=== PATIENT | male | born 1955 | race Caucasian/White ===

== ENCOUNTER 2021-09-20 21:12 | Emergency (ER) | payer OTHER ==
[2021-09-20 22:04] VITALS: TEMP 98.2; BMI 24.0
[2021-09-20 22:22] LABS: BASO % 0.1 % (0-2.0); EOS % 2.8 % (0-4.5); HEMATOCRIT 42.8 % (35.4-49); HEMOGLOBIN 14.1 GM/dL (11.7-16.9); LYMPH % 15.7 % (8-40); MCH 28.5 pg (25.7-33.7); MEAN CELL VOLUME 86.2 fl (80-96); MEAN PLT VOLUME 8.8 fl (7.5-11.1); MONO % 6.1 % (3.8-10.2); NEUT % 75.3 % (42.8-82.8); PLATELET COUNT 199 10^3/uL (134-434); RBC 4.97 M/mm3 (4.00-5.60); RDW 13.5 % (11.9-15.9); WHITE BLOOD COUNT 7.2 K/mm3 (4.0-10.0)
[2021-09-20 22:32] LABS: INR 1.03 (0.83-1.09); PROTHROMBIN TIME (PATIENT) 12.1 SEC (9.7-13.0)
[2021-09-20 22:35] LABS: ACTIVATED PTT 32.4 SECONDS (25.2-36.5)
[2021-09-20 22:40] LABS: CHLORIDE 98 mmol/L (98-107); SODIUM 139 mmol/L (136-145)
[2021-09-20 22:42] LABS: ALBUMIN 3.5 g/dl (3.4-5.0); ANION GAP 5 MMOL/L (8-16); CO2 36 mmol/L (21-32); GLUCOSE,RANDOM 94 mg/dL (74-106); MAGNESIUM 2.4 mg/dL (1.8-2.4)
[2021-09-20 22:43] LABS: BLOOD UREA NITROGEN 27.6 mg/dL (7-18)
[2021-09-20 22:45] LABS: CREATININE 1.1 mg/dL (0.55-1.3); SGOT/AST 20 U/L (15-37)
[2021-09-20 22:46] LABS: SGPT/ALT 15 U/L (13-61)
[2021-09-20 22:47] LABS: BILIRUBIN,TOTAL 0.3 mg/dL (0.2-1); TOT PROT 7.5 g/dl (6.4-8.2)
[2021-09-20 22:48] LABS: ALK PHOS 135 U/L (45-117)
[2021-09-21 01:39] LABS: URINE APPEARANCE CLEAR; URINE BILIRUBIN NEGATIVE (NEGATIVE); URINE COLOR YELLOW; URINE GLUCOSE (UA) NEGATIVE (NEGATIVE); URINE KETONE TRACE (NEGATIVE); URINE LEUK ESTERASE NEGATIVE (NEGATIVE); URINE NITRITE NEGATIVE (NEGATIVE); URINE PROTEIN NEGATIVE (NEGATIVE)
[2021-09-21 02:06] VITALS: BP 150/90; PULSE 90
== END 2021-09-21 02:09 | disposition home or self-care (01) ==
LOC: JER 21:12
DX: R53.1 Weakness (principal)
CPT/HCPCS: 36415; 70450-TC; 71046-TC-FY; 72125-TC; 80053; 81003; 82550; 83735; 84484; 85025; 85610; 85730; 93005; 93010; 99285-25; C9803; U0003; U0005

== ENCOUNTER 2023-02-21 11:24 | Inpatient (IN) | payer OTHER ==
[2023-02-21 11:49] VITALS: BMI 27.4
[2023-02-21] MEDS ORDERED: CYCLOBENZAPRINE HCL 10 MG TABLET (FP) PO ONE (13:05)
[2023-02-21] MEDS ORDERED: ACETAMINOPHEN 1000 MG/100 ML BAG IVPB ONE (13:06)
[2023-02-21] MEDS ORDERED: amLODIPine BESYLATE 10 MG TABLET (FP) PO ONE (13:07)
[2023-02-21] MEDS ORDERED: ACETAMINOPHEN INJECTION 100 ML IVPB ONE (13:28)
[2023-02-21] MEDS ORDERED: CYCLOBENZAPRINE HCL 10 MG TABLET (FP) ONE ×2 (13:28→21:25)
[2023-02-21] MEDS ORDERED: amLODIPine BESYLATE 10 MG TABLET (FP) ONE (13:28)
[2023-02-21 14:25] LABS: BASO % 0.2 % (0-2.0); EOS % 0.9 % (0-4.5); HEMATOCRIT 41.2 % (35.4-49); HEMOGLOBIN 13.4 GM/dL (11.7-16.9); MCH 28.2 pg (25.7-33.7); MCHC 32.4 g/dl (32.0-35.9); MEAN PLT VOLUME 8.8 fl (7.5-11.1); MONO % 5.4 % (3.8-10.2); NEUT % 82.5 % (42.8-82.8); PLATELET COUNT 220 10^3/uL (134-434); RBC 4.74 M/mm3 (4.00-5.60); WHITE BLOOD COUNT 7.5 K/mm3 (4.0-10.0)
[2023-02-21 14:47] LABS: POTASSIUM 3.9 mmol/L (3.5-5.1)
[2023-02-21 14:51] LABS: CALCIUM 9.2 mg/dL (8.5-10.1)
[2023-02-21 14:52] LABS: ALBUMIN 3.7 g/dl (3.4-5.0); BLOOD UREA NITROGEN 20.4 mg/dL (7-18)
[2023-02-21 14:55] LABS: CREATININE 0.9 mg/dL (0.55-1.3)
[2023-02-21 14:56] LABS: BILIRUBIN,TOTAL 0.4 mg/dL (0.2-1); TOT PROT 7.2 g/dl (6.4-8.2)
[2023-02-21] MEDS ORDERED: KETOROLAC TROMETHAMINE 15 MG/ML VIAL IVPUSH ONE (18:20)
[2023-02-21] MEDS ORDERED: LIDOCAINE 5% TOPICAL PATCH TP ONE (18:20)
[2023-02-21] MEDS ORDERED: KETOROLAC TROMETHAMINE 30 MG/1 ML VIAL ONE (18:46)
[2023-02-21] MEDS ORDERED: LIDOCAINE 5% TOPICAL PATCH ONE (18:46)
[2023-02-21] MEDS ORDERED: ACETAMINOPHEN 1000 MG/100 ML BAG IVPB PRN (21:00)
[2023-02-21] MEDS ORDERED: DOCUSATE SODIUM 100 MG CAPSULE (FP) PO ONE (21:25)
[2023-02-21] MEDS ORDERED: SENNOSIDES 8.6MG TABLET (FP) PO ONE (21:25)
[2023-02-21] MEDS: SENNOSIDES 8.6MG TABLET (FP) PO SCH (21:30)
[2023-02-21] MEDS: CYCLOBENZAPRINE HCL 10 MG TABLET (FP) PO SCH (21:30)
[2023-02-21] MEDS: DOCUSATE SODIUM 100 MG CAPSULE (FP) PO SCH (21:30)
[2023-02-21] MEDS: LIDOCAINE PATCH REMOVAL MC SCH (21:30)
[2023-02-21] MEDS ORDERED: PATIENT'S OWN MEDICATION (NON-FORMULARY) (Lisinopril/Hydrochlorothiazide [Lisinopril-Hctz PO SCH (21:30)
[2023-02-21] MEDS: LISINOPRIL 10 MG TABLET PO SCH (21:34)
[2023-02-21] MEDS: HYDROCHLOROTHIAZIDE 12.5 MG CAPSULE (FP) PO SCH (21:34)
[2023-02-21 21:42] LABS: PH,URINE 7.5 (5.0-8.0); URINE APPEARANCE CLEAR; URINE BILIRUBIN NEGATIVE (NEGATIVE); URINE COLOR YELLOW; URINE GLUCOSE (UA) NEGATIVE (NEGATIVE); URINE KETONE NEGATIVE (NEGATIVE); URINE LEUK ESTERASE NEGATIVE (NEGATIVE); URINE NITRITE NEGATIVE (NEGATIVE); URINE PROTEIN NEGATIVE (NEGATIVE)
[2023-02-21] MEDS: oxyCODONE HCL 10 MG SUSTAINED ACTING TABLET PO SCH (23:35)
[2023-02-22] MEDS: CYCLOBENZAPRINE HCL 10 MG TABLET (FP) PO SCH ×3 (06:32→21:52)
[2023-02-22] MEDS ORDERED: LIDOCAINE PATCH REMOVAL MC SCH (07:00)
[2023-02-22] MEDS: TAMSULOSIN HCL 0.4 MG CAP PO SCH (08:30)
[2023-02-22 08:58] LABS: HEMATOCRIT 42.7 % (35.4-49); HEMOGLOBIN 14.1 GM/dL (11.7-16.9); MCH 28.5 pg (25.7-33.7); MCHC 33.1 g/dl (32.0-35.9); MEAN CELL VOLUME 85.9 fl (80-96); MEAN PLT VOLUME 9.2 fl (7.5-11.1); PLATELET COUNT 222 10^3/uL (134-434); RBC 4.97 M/mm3 (4.00-5.60); RDW 13.6 % (11.9-15.9); WHITE BLOOD COUNT 8.7 K/mm3 (4.0-10.0)
[2023-02-22 09:17] LABS: POTASSIUM 4.5 mmol/L (3.5-5.1)
[2023-02-22 09:21] LABS: BLOOD UREA NITROGEN 16.8 mg/dL (7-18); CALCIUM 9.2 mg/dL (8.5-10.1)
[2023-02-22 09:22] LABS: MAGNESIUM 2.4 mg/dL (1.8-2.4)
[2023-02-22 09:24] LABS: CREATININE 0.7 mg/dL (0.55-1.3); PHOSPHOROUS 3.3 mg/dL (2.5-4.9)
[2023-02-22] MEDS: HYDROCHLOROTHIAZIDE 12.5 MG CAPSULE (FP) PO SCH (10:04)
[2023-02-22] MEDS: oxyCODONE HCL 10 MG SUSTAINED ACTING TABLET PO SCH (10:04)
[2023-02-22] MEDS: LISINOPRIL 10 MG TABLET PO SCH (10:04)
[2023-02-22] MEDS: DOCUSATE SODIUM 100 MG CAPSULE (FP) PO SCH ×2 (10:04→21:53)
[2023-02-22] MEDS: methaDONE HCL 10 MG TABLET PO SCH ×3 (10:04→21:52)
[2023-02-22] MEDS: LIDOCAINE 5% TOPICAL PATCH TP SCH (10:05)
[2023-02-22] MEDS: ENOXAPARIN NA (PORCINE) 40 MG/0.4 ML DISP.SYRIN SQ SCH (10:05)
[2023-02-22] MEDS: SENNOSIDES 8.6MG TABLET (FP) PO SCH (21:52)
[2023-02-22] MEDS: LIDOCAINE PATCH REMOVAL MC SCH (21:53)
[2023-02-23] MEDS: CYCLOBENZAPRINE HCL 10 MG TABLET (FP) PO SCH ×3 (05:55→21:51)
[2023-02-23] MEDS: TAMSULOSIN HCL 0.4 MG CAP PO SCH (08:58)
[2023-02-23] MEDS: HYDROCHLOROTHIAZIDE 12.5 MG CAPSULE (FP) PO SCH (10:09)
[2023-02-23] MEDS: ENOXAPARIN NA (PORCINE) 40 MG/0.4 ML DISP.SYRIN SQ SCH (10:09)
[2023-02-23] MEDS: LISINOPRIL 10 MG TABLET PO SCH (10:09)
[2023-02-23] MEDS: DOCUSATE SODIUM 100 MG CAPSULE (FP) PO SCH ×2 (10:09→21:51)
[2023-02-23] MEDS: methaDONE HCL 10 MG TABLET PO SCH ×2 (10:09→21:51)
[2023-02-23] MEDS: LIDOCAINE 5% TOPICAL PATCH TP SCH (10:10)
[2023-02-23] MEDS: ACETAMINOPHEN 325 MG TABLET (FP) PO SCH ×3 (12:16→23:04)
[2023-02-23] MEDS: SENNOSIDES 8.6MG TABLET (FP) PO SCH (21:51)
[2023-02-23] MEDS: LIDOCAINE PATCH REMOVAL MC SCH (21:52)
[2023-02-24] MEDS: ACETAMINOPHEN 325 MG TABLET (FP) PO SCH ×2 (05:33→13:22)
[2023-02-24] MEDS: CYCLOBENZAPRINE HCL 10 MG TABLET (FP) PO SCH ×2 (05:33→13:22)
[2023-02-24] MEDS ORDERED: IBUPROFEN 400 MG TABLET (FP) PO ONE (08:30)
[2023-02-24] MEDS: TAMSULOSIN HCL 0.4 MG CAP PO SCH (08:36)
[2023-02-24] MEDS: LISINOPRIL 10 MG TABLET PO SCH (09:13)
[2023-02-24] MEDS: methaDONE HCL 10 MG TABLET PO SCH (09:13)
[2023-02-24] MEDS: DOCUSATE SODIUM 100 MG CAPSULE (FP) PO SCH (09:13)
[2023-02-24] MEDS: HYDROCHLOROTHIAZIDE 12.5 MG CAPSULE (FP) PO SCH (09:14)
[2023-02-24] MEDS: LIDOCAINE 5% TOPICAL PATCH TP SCH (09:14)
[2023-02-24] MEDS: ENOXAPARIN NA (PORCINE) 40 MG/0.4 ML DISP.SYRIN SQ SCH (09:14)
[2023-02-24 14:25] VITALS: BP 123/89; PULSE 87; TEMP 98.1
[2023-02-24 14:28] VITALS: RESP 20
== END 2023-02-24 18:44 | disposition home or self-care (01) | DRG 552 ==
LOC: JER 11:24 → JERBED 18:18 → J8W 22:02 → OBSVTOIN 02-22 16:56
PROVIDERS: ADMIT Internal Medicine; ATTEND Internal Medicine
DX: M54.30 Sciatica, unspecified side (principal); N13.2 Hydronephrosis with renal and ureteral calculous obstruction; I10 Essential (primary) hypertension; F41.9 Anxiety disorder, unspecified; R26.2 Difficulty in walking, not elsewhere classified; M79.661 Pain in right lower leg; M54.16 Radiculopathy, lumbar region
CPT/HCPCS: 36415; 72131-TC; 74178-TC; 76775-TC; 80048; 80053; 81003; 82550; 83735; 84100; 85025; 85027; 93005; 93010; 93971-TC; 97116-GP; 97161-GP; 99285-25; C9803-CS; G0378; U0003; U0005

== ENCOUNTER 2023-03-12 14:27 | Emergency (ER) | payer OTHER ==
[2023-03-12 14:39] VITALS: RESP 18; BMI 27.4
[2023-03-12] MEDS ORDERED: ACETAMINOPHEN 325 MG TABLET (FP) PO ONE (15:33)
[2023-03-12] MEDS ORDERED: ACETAMINOPHEN 325 MG TABLET (FP) ONE (15:47)
[2023-03-12 16:48] VITALS: BP 132/87; PULSE 80; TEMP 98.8
== END 2023-03-12 17:17 | disposition home or self-care (01) ==
LOC: JER 14:27
DX: M84.421A Pathological fracture, right humerus, initial encounter for fracture (principal); M25.511 Pain in right shoulder
CPT/HCPCS: 73030-TC-RT-FY; 73060-TC-RT-FY; 99283-25

== ENCOUNTER 2023-08-16 16:43 | Emergency (ER) | payer OTHER ==
[2023-08-16 16:58] VITALS: BP 127/83; PULSE 91; RESP 18; TEMP 98; BMI 27.4
[2023-08-16] MEDS ORDERED: ONDANSETRON 4 MG/2 ML VIAL IVPUSH ONE (18:08)
[2023-08-16] MEDS ORDERED: ACETAMINOPHEN 1000 MG/100 ML BAG IVPB ONE (18:08)
[2023-08-16] MEDS ORDERED: MAG HYDROX/AL HYDROX/SIMETH 30 ML UNIT-DOSE CUP PO ONE (18:16)
[2023-08-16] MEDS ORDERED: FAMOTIDINE 20 MG/50 ML IVPB 20 MG/50 ML MG IVPB ONE ×2 (18:16→18:25)
[2023-08-16] MEDS ORDERED: MAG HYDROX/AL HYDROX/SIMETH 30 ML UNIT-DOSE CUP ONE (18:25)
[2023-08-16] MEDS ORDERED: ONDANSETRON 4 MG/2 ML VIAL ONE (18:25)
[2023-08-16] MEDS ORDERED: ACETAMINOPHEN INJECTION 100 ML IVPB ONE (18:25)
[2023-08-16 19:48] LABS: POTASSIUM 5.5 mmol/L (3.5-5.1)
[2023-08-16 19:50] LABS: ALBUMIN 3.4 g/dl (3.4-5.0); CALCIUM 9.6 mg/dL (8.5-10.1)
[2023-08-16 19:51] LABS: BLOOD UREA NITROGEN 17.1 mg/dL (7-18)
[2023-08-16 19:53] LABS: CREATININE 1.2 mg/dL (0.55-1.3)
[2023-08-16 19:55] LABS: BILIRUBIN,TOTAL 0.8 mg/dL (0.2-1); TOT PROT 7.5 g/dl (6.4-8.2)
[2023-08-16 21:19] LABS: BASO % 0.3 % (0-2.0); EOS % 3.3 % (0-4.5); HEMOGLOBIN 11.8 GM/dL (11.7-16.9); LYMPH % 19.2 % (8-40); MCHC 32.7 g/dl (32.0-35.9); MEAN CELL VOLUME 85.7 fl (80-96); MEAN PLT VOLUME 8.5 fl (7.5-11.1); MONO % 7.7 % (3.8-10.2); NEUT % 69.5 % (42.8-82.8); PLATELET COUNT 207 10^3/uL (134-434); RDW 13.8 % (11.9-15.9); WHITE BLOOD COUNT 5.9 K/mm3 (4.0-10.0)
[2023-08-16 21:41] LABS: POTASSIUM 3.8 mmol/L (3.5-5.1)
[2023-08-16 21:43] LABS: CALCIUM 8.5 mg/dL (8.5-10.1)
[2023-08-16 21:44] LABS: ALBUMIN 3.1 g/dl (3.4-5.0)
[2023-08-16 21:48] LABS: BLOOD UREA NITROGEN 15.5 mg/dL (7-18); TOT PROT 6.1 g/dl (6.4-8.2)
[2023-08-16 21:49] LABS: BILIRUBIN,TOTAL 0.4 mg/dL (0.2-1)
== END 2023-08-16 23:16 | disposition home or self-care (01) ==
LOC: JER 16:43
PROC: 3E033GC Introduction of Other Therapeutic Substance into Peripheral Vein, Percutaneous Approach (ICD-10-PCS; principal; 2023-08-16)
PROC: 3E033NZ Introduction of Analgesics, Hypnotics, Sedatives into Peripheral Vein, Percutaneous Approach (ICD-10-PCS; 2023-08-16)
PROC: 3E033GC Introduction of Other Therapeutic Substance into Peripheral Vein, Percutaneous Approach (ICD-10-PCS; 2023-08-16)
DX: R10.13 Epigastric pain (principal); K29.70 Gastritis, unspecified, without bleeding; K59.00 Constipation, unspecified; R30.0 Dysuria
CPT/HCPCS: 36415; 71046-TC-FY; 74177-TC; 76705-TC; 80053; 83690; 84484; 85025; 93005; 93010; 96365; 96375; 99285-25; Q9967

== ENCOUNTER 2023-12-20 15:18 | Emergency (ER) | payer OTHER ==
[2023-12-20 15:30] VITALS: TEMP 98.2; BMI 22.3
[2023-12-20] MEDS ORDERED: ACETAMINOPHEN INJECTION 100 ML IVPB ONE (17:23)
[2023-12-20] MEDS ORDERED: FAMOTIDINE 20 MG/50 ML IVPB 20 MG/50 ML MG IVPB ONE (17:23)
[2023-12-20] MEDS ORDERED: MAG HYDROX/AL HYDROX/SIMETH 30 ML UNIT-DOSE CUP ONE (17:23)
[2023-12-20 17:25] LABS: BASO % 0.3 % (0-2.0); EOS % 2.5 % (0-4.5); HEMATOCRIT 36.2 % (35.4-49); HEMOGLOBIN 11.7 GM/dL (11.7-16.9); LYMPH % 14.8 % (8-40); MCH 27.9 pg (25.7-33.7); MCHC 32.4 g/dl (32.0-35.9); MEAN CELL VOLUME 86.1 fl (80-96); MEAN PLT VOLUME 8.8 fl (7.5-11.1); MONO % 7.2 % (3.8-10.2); NEUT % 75.2 % (42.8-82.8); PLATELET COUNT 251 10^3/uL (134-434); RDW 15.5 % (11.9-15.9)
[2023-12-20] MEDS: SODIUM CHLORIDE 0.9% 500 ML INFUS.BAG IV ONE (17:34)
[2023-12-20] MEDS: MAG HYDROX/AL HYDROX/SIMETH 30 ML UNIT-DOSE CUP PO ONE (17:34)
[2023-12-20] MEDS: ACETAMINOPHEN 1000 MG/100 ML BAG IVPB ONE (17:35)
[2023-12-20] MEDS: FAMOTIDINE 20 MG/50 ML IVPB 20 MG/50 ML MG IVPB ONE (17:35)
[2023-12-20 17:40] LABS: INR 1.06 (0.83-1.09); PROTHROMBIN TIME (PATIENT) 12.3 SEC (9.7-13.0)
[2023-12-20 17:42] LABS: ACTIVATED PTT 28.4 SECONDS (25.2-36.5)
[2023-12-20 17:45] LABS: URINE APPEARANCE CLEAR; URINE BILIRUBIN NEGATIVE (NEGATIVE); URINE COLOR YELLOW; URINE GLUCOSE (UA) NEGATIVE (NEGATIVE); URINE KETONE NEGATIVE (NEGATIVE); URINE LEUK ESTERASE NEGATIVE (NEGATIVE); URINE NITRITE NEGATIVE (NEGATIVE); URINE PROTEIN NEGATIVE (NEGATIVE)
[2023-12-20 17:48] LABS: CHLORIDE 106 mmol/L (98-107); POTASSIUM 5.3 mmol/L (3.5-5.1); SODIUM 140 mmol/L (136-145)
[2023-12-20 17:50] LABS: ALBUMIN 3.1 g/dl (3.4-5.0); ANION GAP 4 mmol/L (4-13); CALCIUM 9.2 mg/dL (8.5-10.1); CO2 30 mmol/L (21-32); GLUCOSE,RANDOM 80 mg/dL (74-106)
[2023-12-20 17:51] LABS: BLOOD UREA NITROGEN 20.1 mg/dL (7-18)
[2023-12-20 17:53] LABS: CREATININE 0.9 mg/dL (0.55-1.3); SGOT/AST 25 U/L (15-37); SGPT/ALT 18 U/L (13-61)
[2023-12-20 17:55] LABS: BILIRUBIN,TOTAL 0.3 mg/dL (0.2-1); TOT PROT 6.7 g/dl (6.4-8.2)
[2023-12-20 17:56] LABS: ALK PHOS 122 U/L (45-117)
[2023-12-20 22:16] VITALS: BP 122/76; PULSE 78; RESP 18
== END 2023-12-20 22:16 | disposition home or self-care (01) ==
LOC: JER 15:18
PROC: 3E033GC Introduction of Other Therapeutic Substance into Peripheral Vein, Percutaneous Approach (ICD-10-PCS; principal; 2023-12-20)
PROC: 3E033NZ Introduction of Analgesics, Hypnotics, Sedatives into Peripheral Vein, Percutaneous Approach (ICD-10-PCS; 2023-12-20)
DX: R10.13 Epigastric pain (principal); R42 Dizziness and giddiness; R19.7 Diarrhea, unspecified; Z20.822 Contact with and (suspected) exposure to COVID-19
CPT/HCPCS: 0241U-QW; 36415; 71045-TC-FY; 74177-TC; 80053; 81003; 83690; 83735; 84484; 85025; 85610; 85730; 86850; 86900; 86901; 87086; 87186; 93005; 93010; 96365; 96375; 99285-25; J0131; Q9967

== ENCOUNTER 2023-12-23 16:45 | Observation (INO) | payer OTHER ==
[2023-12-23] MEDS: SODIUM CHLORIDE 0.9% 500 ML INFUS.BAG IV ONE (18:36)
[2023-12-23 18:43] LABS: BASO % 0.2 % (0-2.0); EOS % 1.3 % (0-4.5); HEMATOCRIT 40.3 % (35.4-49); HEMOGLOBIN 13.1 GM/dL (11.7-16.9); LYMPH % 9.8 % (8-40); MCH 28.1 pg (25.7-33.7); MCHC 32.6 g/dl (32.0-35.9); MEAN CELL VOLUME 86.2 fl (80-96); MEAN PLT VOLUME 8.6 fl (7.5-11.1); MONO % 6.5 % (3.8-10.2); NEUT % 82.2 % (42.8-82.8); PLATELET COUNT 271 10^3/uL (134-434); RBC 4.67 M/mm3 (4.00-5.60); RDW 15.4 % (11.9-15.9); WHITE BLOOD COUNT 9.2 K/mm3 (4.0-10.0)
[2023-12-23 19:08] LABS: POTASSIUM 4.7 mmol/L (3.5-5.1)
[2023-12-23 19:11] LABS: MAGNESIUM 2.1 mg/dL (1.8-2.4)
[2023-12-23 19:13] LABS: CREATININE 0.9 mg/dL (0.55-1.3)
[2023-12-23 19:15] LABS: TOT PROT 7.5 g/dl (6.4-8.2)
[2023-12-23 19:27] LABS: ALBUMIN 3.4 g/dl (3.4-5.0); BILIRUBIN,TOTAL 0.4 mg/dL (0.2-1); BLOOD UREA NITROGEN 14.5 mg/dL (7-18); CALCIUM 9.8 mg/dL (8.5-10.1); PHOSPHOROUS 2.9 mg/dL (2.5-4.9)
[2023-12-23 23:08] LABS: EPI CELLS 0 /uL (0-25.1); HYALINE CASTS 0 /uL (0-3.1); URINE APPEARANCE CLEAR; URINE BACTERIA >9,000 /uL (0-1359); URINE BILIRUBIN NEGATIVE (NEGATIVE); URINE COLOR YELLOW; URINE GLUCOSE (UA) NEGATIVE (NEGATIVE); URINE KETONE NEGATIVE (NEGATIVE); URINE LEUK ESTERASE 1+ (NEGATIVE); URINE NITRITE NEGATIVE (NEGATIVE); URINE PROTEIN NEGATIVE (NEGATIVE); URINE RBC 11 /uL (0-23.9); URINE WBC 136 /uL (0-25.8)
[2023-12-23 23:27] LABS: POTASSIUM 4.8 mmol/L (3.5-5.1)
[2023-12-23 23:28] LABS: CALCIUM 9.3 mg/dL (8.5-10.1)
[2023-12-23 23:29] LABS: BLOOD UREA NITROGEN 13.3 mg/dL (7-18)
[2023-12-23 23:32] LABS: CREATININE 0.8 mg/dL (0.55-1.3)
[2023-12-24] MEDS ORDERED: CEFTRIAXONE 1 GM/50 ML BAG ONE (00:03)
[2023-12-24] MEDS ORDERED: traZODone HCL 100 MG TABLET (FP) ONE (02:18)
[2023-12-24] MEDS: traZODone HCL 50 MG TABLET (FP) PO ONE ×2 (02:21→22:44)
[2023-12-24] MEDS: SODIUM CHLORIDE 1,000 ML IV SCH (03:37)
[2023-12-24 04:35] VITALS: BMI 21.5
[2023-12-24 08:12] LABS: BASO % 0.4 % (0-2.0); EOS % 2.3 % (0-4.5); HEMOGLOBIN 12.2 GM/dL (11.7-16.9); LYMPH % 20.4 % (8-40); MCH 28.5 pg (25.7-33.7); MCHC 32.9 g/dl (32.0-35.9); MEAN CELL VOLUME 86.6 fl (80-96); MONO % 7.8 % (3.8-10.2); NEUT % 69.1 % (42.8-82.8); PLATELET COUNT 227 10^3/uL (134-434); RBC 4.28 M/mm3 (4.00-5.60); RDW 14.9 % (11.9-15.9); WHITE BLOOD COUNT 8.4 K/mm3 (4.0-10.0)
[2023-12-24 08:47] LABS: CALCIUM 9.2 mg/dL (8.5-10.1)
[2023-12-24 08:48] LABS: BLOOD UREA NITROGEN 12.3 mg/dL (7-18); MAGNESIUM 1.8 mg/dL (1.8-2.4)
[2023-12-24 08:50] LABS: TOT PROT 6.4 g/dl (6.4-8.2)
[2023-12-24 08:51] LABS: CREATININE 1.1 mg/dL (0.55-1.3); PHOSPHOROUS 3.5 mg/dL (2.5-4.9)
[2023-12-24 08:52] LABS: BILIRUBIN,TOTAL 0.3 mg/dL (0.2-1)
[2023-12-24] MEDS: LISINOPRIL 10 MG TABLET PO SCH (09:47)
[2023-12-24] MEDS: ENOXAPARIN NA (PORCINE) 40 MG/0.4 ML DISP.SYRIN SQ SCH (09:47)
[2023-12-24] MEDS: PEG 3350/NA SULF BICARB CL/KCL 4000 ML SOLN.RECON PO ONE (17:00)
[2023-12-24] MEDS: BISACODYL 5 MG TABLET.DR (FP) PO ONE (18:31)
[2023-12-24] MEDS: methaDONE HCL 10 MG TABLET PO SCH (18:31)
[2023-12-24] MEDS: LISINOPRIL 20 MG TABLET PO ONE (19:03)
[2023-12-24] MEDS: POLYETHYLENE GLYCOL 3350 255 GM BTL PO ONE (19:55)
[2023-12-24] MEDS: TRIMETHOBENZAMIDE HCL 200MG/2ML INJ IM ONE (22:06)
[2023-12-25] MEDS: LABETALOL HCL 5 MG/1 ML (100MG/20 ML VIAL) IVPUSH ONE (00:53)
[2023-12-25 07:43] LABS: BASO % 0.1 % (0-2.0); EOS % 3.6 % (0-4.5); HEMATOCRIT 36.3 % (35.4-49); HEMOGLOBIN 11.8 GM/dL (11.7-16.9); LYMPH % 31.3 % (8-40); MCH 28.2 pg (25.7-33.7); MCHC 32.5 g/dl (32.0-35.9); MEAN CELL VOLUME 86.9 fl (80-96); MONO % 8.6 % (3.8-10.2); NEUT % 56.4 % (42.8-82.8); PLATELET COUNT 215 10^3/uL (134-434); RBC 4.18 M/mm3 (4.00-5.60); RDW 15.4 % (11.9-15.9); WHITE BLOOD COUNT 5.4 K/mm3 (4.0-10.0)
[2023-12-25 07:49] LABS: POTASSIUM 3.7 mmol/L (3.5-5.1)
[2023-12-25 08:19] LABS: CALCIUM 9.1 mg/dL (8.5-10.1)
[2023-12-25 08:20] LABS: ALBUMIN 2.8 g/dl (3.4-5.0)
[2023-12-25 08:22] LABS: PHOSPHOROUS 3.6 mg/dL (2.5-4.9)
[2023-12-25 08:24] LABS: CREATININE 0.8 mg/dL (0.55-1.3)
[2023-12-25 08:25] LABS: BILIRUBIN,TOTAL 0.4 mg/dL (0.2-1)
[2023-12-25] MEDS: LISINOPRIL 20 MG TABLET PO SCH (10:45)
[2023-12-25] MEDS: METHYLNALTREXONE BROMIDE 8 MG/0.4 ML SYRINGE SQ ONE (13:58)
[2023-12-25] MEDS: POLYETHYLENE GLYCOL 3350 255 GM BTL PO ONE (13:58)
[2023-12-26] MEDS: traZODone HCL 50 MG TABLET (FP) PO ONE (00:37)
[2023-12-26 07:20] LABS: BASO % 0.4 % (0-2.0); EOS % 4.7 % (0-4.5); HEMATOCRIT 36.6 % (35.4-49); HEMOGLOBIN 12.1 GM/dL (11.7-16.9); LYMPH % 30.3 % (8-40); MCH 28.6 pg (25.7-33.7); MEAN CELL VOLUME 86.6 fl (80-96); MEAN PLT VOLUME 9.1 fl (7.5-11.1); MONO % 7.3 % (3.8-10.2); NEUT % 57.3 % (42.8-82.8); PLATELET COUNT 199 10^3/uL (134-434); RBC 4.23 M/mm3 (4.00-5.60); RDW 15.3 % (11.9-15.9); WHITE BLOOD COUNT 5.6 K/mm3 (4.0-10.0)
[2023-12-26 07:38] LABS: POTASSIUM 3.7 mmol/L (3.5-5.1)
[2023-12-26 07:41] LABS: CALCIUM 8.7 mg/dL (8.5-10.1)
[2023-12-26 07:42] LABS: ALBUMIN 2.8 g/dl (3.4-5.0); BLOOD UREA NITROGEN 8.9 mg/dL (7-18); MAGNESIUM 1.7 mg/dL (1.8-2.4)
[2023-12-26 07:45] LABS: CREATININE 0.8 mg/dL (0.55-1.3); PHOSPHOROUS 3.2 mg/dL (2.5-4.9)
[2023-12-26 07:46] LABS: BILIRUBIN,TOTAL 0.4 mg/dL (0.2-1); TOT PROT 6.2 g/dl (6.4-8.2)
[2023-12-26] MEDS: POLYETHYLENE GLYCOL 3350 255 GM BTL PO ONE (12:46)
[2023-12-26] MEDS: amLODIPine BESYLATE 5 MG TABLET (FP) PO SCH (15:15)
[2023-12-27] MEDS: MELATONIN 5 MG TABLETS PO ONE (01:30)
[2023-12-27 07:17] LABS: BASO % 0.5 % (0-2.0); EOS % 5.2 % (0-4.5); HEMATOCRIT 35.9 % (35.4-49); HEMOGLOBIN 11.8 GM/dL (11.7-16.9); LYMPH % 18.4 % (8-40); MCH 28.5 pg (25.7-33.7); MCHC 32.9 g/dl (32.0-35.9); MEAN CELL VOLUME 86.6 fl (80-96); MEAN PLT VOLUME 8.6 fl (7.5-11.1); MONO % 8.5 % (3.8-10.2); NEUT % 67.4 % (42.8-82.8); PLATELET COUNT 201 10^3/uL (134-434); RBC 4.14 M/mm3 (4.00-5.60); RDW 15.6 % (11.9-15.9); WHITE BLOOD COUNT 6.1 K/mm3 (4.0-10.0)
[2023-12-27 07:25] LABS: POTASSIUM 3.4 mmol/L (3.5-5.1)
[2023-12-27 07:32] LABS: ALBUMIN 2.9 g/dl (3.4-5.0); BLOOD UREA NITROGEN 7.1 mg/dL (7-18); MAGNESIUM 1.9 mg/dL (1.8-2.4)
[2023-12-27 07:35] LABS: BILIRUBIN,TOTAL 0.4 mg/dL (0.2-1); CREATININE 0.8 mg/dL (0.55-1.3); PHOSPHOROUS 3.5 mg/dL (2.5-4.9)
[2023-12-27 07:36] LABS: TOT PROT 6.1 g/dl (6.4-8.2)
[2023-12-27] MEDS: amLODIPine BESYLATE 10 MG TABLET (FP) PO SCH (09:15)
[2023-12-27] MEDS: MAGNESIUM CITRATE 300 ML BOTTLE PO ONE (09:24)
[2023-12-27] MEDS: METHYLNALTREXONE BROMIDE 8 MG/0.4 ML SYRINGE SQ ONE (10:09)
[2023-12-27] MEDS: ONDANSETRON 4 MG/2 ML VIAL IVPUSH PRN (10:46)
[2023-12-27] MEDS ORDERED: LABETALOL HCL 20 MG/4 ML VIAL ONE ×2 (11:51→21:32)
[2023-12-27 11:58] LABS: ARTERIAL BLD GAS O2 SATURATION 99.8 % (95-98); ARTERIAL BLOOD GAS BASE EXCESS 0.2 mmol/L (-2-2); ARTERIAL BLOOD GAS PO2 431.5 mmHg (80-100); ARTERIAL BLOOD GAS pH 7.403 (7.350-7.450)
[2023-12-27 11:59] LABS: ALLENS TEST POSITIVE
[2023-12-27] MEDS: TRIMETHOBENZAMIDE HCL 200MG/2ML INJ IM ONE (14:59)
[2023-12-27] MEDS: LABETALOL HCL 20 MG/4 ML VIAL IVPUSH ONE (14:59)
[2023-12-27] MEDS ORDERED: TRIMETHOBENZAMIDE HCL 200MG/2ML INJ IM PRN (16:40)
[2023-12-27 16:52] LABS: LACTIC ACID 2.4 mmol/L (0.4-2.0)
[2023-12-27] MEDS: D5-NS + 20 MEQ KCL - 20 MEQ/1,000 ML INFUS.BAG IV SCH (18:29)
[2023-12-27] MEDS: LABETALOL HCL 5 MG/1 ML (100MG/20 ML VIAL) IVPUSH ONE (21:34)
[2023-12-27 23:02] VITALS: RESP 18
[2023-12-28 08:06] LABS: BASO % 0.1 % (0-2.0); EOS % 0.3 % (0-4.5); HEMATOCRIT 36.1 % (35.4-49); HEMOGLOBIN 12.1 GM/dL (11.7-16.9); LYMPH % 14.1 % (8-40); MCH 28.8 pg (25.7-33.7); MCHC 33.4 g/dl (32.0-35.9); MEAN CELL VOLUME 86.2 fl (80-96); MEAN PLT VOLUME 9.1 fl (7.5-11.1); MONO % 9.7 % (3.8-10.2); NEUT % 75.8 % (42.8-82.8); PLATELET COUNT 214 10^3/uL (134-434); RBC 4.19 M/mm3 (4.00-5.60); RDW 15.2 % (11.9-15.9)
[2023-12-28 08:26] LABS: POTASSIUM 4.7 mmol/L (3.5-5.1)
[2023-12-28 08:34] LABS: ALBUMIN 2.8 g/dl (3.4-5.0); BLOOD UREA NITROGEN 10.8 mg/dL (7-18); CALCIUM 8.9 mg/dL (8.5-10.1); PHOSPHOROUS 2.9 mg/dL (2.5-4.9)
[2023-12-28 08:36] LABS: BILIRUBIN,TOTAL 0.3 mg/dL (0.2-1); TOT PROT 6.3 g/dl (6.4-8.2)
[2023-12-28 14:06] VITALS: BP 119/72; PULSE 81; TEMP 98.1
== END 2023-12-28 16:46 | disposition home or self-care (01) ==
LOC: JER 16:45 → JERBED 23:56 → J4W 12-24 04:00
PROVIDERS: ADMIT Internal Medicine; ATTEND Internal Medicine
PROC: 3E03329 Introduction of Other Anti-infective into Peripheral Vein, Percutaneous Approach (ICD-10-PCS; principal; 2023-12-23)
PROC: 3E033GC Introduction of Other Therapeutic Substance into Peripheral Vein, Percutaneous Approach (ICD-10-PCS; 2023-12-23)
PROC: 3E0337Z Introduction of Electrolytic and Water Balance Substance into Peripheral Vein, Percutaneous Approach (ICD-10-PCS; 2023-12-23)
PROC: 3E023GC Introduction of Other Therapeutic Substance into Muscle, Percutaneous Approach (ICD-10-PCS; 2023-12-23)
PROC: 3E0337Z Introduction of Electrolytic and Water Balance Substance into Peripheral Vein, Percutaneous Approach (ICD-10-PCS; 2023-12-23)
DX: N39.0 Urinary tract infection, site not specified (principal); R63.8 Other symptoms and signs concerning food and fluid intake; K21.9 Gastro-esophageal reflux disease without esophagitis; K25.9 Gastric ulcer, unspecified as acute or chronic, without hemorrhage or perforation; M54.9 Dorsalgia, unspecified; Z79.891 Long term (current) use of opiate analgesic; I10 Essential (primary) hypertension; R19.7 Diarrhea, unspecified; G89.29 Other chronic pain; R63.4 Abnormal weight loss; R42 Dizziness and giddiness; Z87.11 Personal history of peptic ulcer disease; R11.0 Nausea; K59.09 Other constipation; R55 Syncope and collapse
CPT/HCPCS: 0241U-QW; 36415; 36600; 70450-TC; 71045-TC-FY; 71275-TC; 73502-TC-LT-FY; 73552-TC-LT-FY; 74018-TC-FY; 74174-TC; 80048; 80053; 81003; 82140; 82272; 82550; 82803; 82962; 82977; 83605; 83690; 83735; 84100; 84484; 85025; 86850; 86900; 86901; 87086; 87186; 93005; 93010; 93971-TC; 96361; 96365; 96372; 96375; 96376; 97116-GP; 97161-GP; 99285-25; G0378; Q9967

== ENCOUNTER 2024-01-28 15:47 | Observation (INO) | payer OTHER ==
[2024-01-28 16:03] VITALS: BMI 22.3
[2024-01-28] MEDS ORDERED: ACETAMINOPHEN INJECTION 100 ML IVPB ONE (17:21)
[2024-01-28] MEDS ORDERED: FAMOTIDINE 20 MG/50 ML IVPB 20 MG/50 ML MG IVPB ONE (17:22)
[2024-01-28] MEDS ORDERED: MAG HYDROX/AL HYDROX/SIMETH 30 ML UNIT-DOSE CUP ONE (17:22)
[2024-01-28] MEDS: FAMOTIDINE 20 MG/50 ML IVPB 20 MG/50 ML MG IVPB ONE (17:50)
[2024-01-28] MEDS: ACETAMINOPHEN 1000 MG/100 ML BAG IVPB ONE (17:50)
[2024-01-28] MEDS: MAG HYDROX/AL HYDROX/SIMETH 30 ML UNIT-DOSE CUP PO ONE (17:51)
[2024-01-28 18:00] LABS: BASO % 0.2 % (0-2.0); EOS % 1.1 % (0-4.5); HEMATOCRIT 36.9 % (35.4-49); HEMOGLOBIN 11.8 GM/dL (11.7-16.9); MCH 28.1 pg (25.7-33.7); MEAN CELL VOLUME 87.7 fl (80-96); MEAN PLT VOLUME 8.6 fl (7.5-11.1); MONO % 6.6 % (3.8-10.2); NEUT % 74.1 % (42.8-82.8); PLATELET COUNT 196 10^3/uL (134-434); RBC 4.21 M/mm3 (4.00-5.60); RDW 15.9 % (11.9-15.9); WHITE BLOOD COUNT 5.6 K/mm3 (4.0-10.0)
[2024-01-28 18:06] LABS: INR 1.05 (0.83-1.09); PROTHROMBIN TIME (PATIENT) 12.2 SEC (9.7-13.0)
[2024-01-28 18:08] LABS: ACTIVATED PTT 29.7 SECONDS (25.2-36.5)
[2024-01-28 18:21] LABS: CALCIUM 9.2 mg/dL (8.5-10.1)
[2024-01-28 18:22] LABS: ALBUMIN 3.2 g/dl (3.4-5.0); BLOOD UREA NITROGEN 19.3 mg/dL (7-18); MAGNESIUM 2.2 mg/dL (1.8-2.4)
[2024-01-28 18:24] LABS: PHOSPHOROUS 2.9 mg/dL (2.5-4.9)
[2024-01-28 18:25] LABS: CREATININE 0.8 mg/dL (0.55-1.3)
[2024-01-28 18:26] LABS: BILIRUBIN,TOTAL 0.5 mg/dL (0.2-1); TOT PROT 6.4 g/dl (6.4-8.2)
[2024-01-28 18:32] LABS: URINE APPEARANCE CLEAR; URINE BILIRUBIN NEGATIVE (NEGATIVE); URINE COLOR YELLOW; URINE GLUCOSE (UA) NEGATIVE (NEGATIVE); URINE KETONE NEGATIVE (NEGATIVE); URINE LEUK ESTERASE NEGATIVE (NEGATIVE); URINE NITRITE NEGATIVE (NEGATIVE); URINE PROTEIN NEGATIVE (NEGATIVE)
[2024-01-28] MEDS ORDERED: POLYETHYLENE GLYCOL (HEALTHYLAX) 3350 17 GM PACKET ONE (19:50)
[2024-01-28] MEDS: POLYETHYLENE GLYCOL (HEALTHYLAX) 3350 17 GM PACKET PO SCH (20:01)
[2024-01-28] MEDS: LACTATED RINGERS SOLUTION 1000 ML INFUS.BAG IV ONE (20:01)
[2024-01-29] MEDS: traZODone HCL 100 MG TABLET (FP) PO SCH (00:09)
[2024-01-29] MEDS: methaDONE HCL 10 MG TABLET PO ONE (00:09)
[2024-01-29] MEDS: LACTATED RINGERS SOLUTION 1,000 ML/1,000 ML INFUS.BAG IV SCH (00:09)
[2024-01-29] MEDS: MINERAL OIL ENEMA 133 ML ENEMA RC ONE (00:09)
[2024-01-29] MEDS ORDERED: MINERAL OIL ENEMA 133 ML ENEMA RC ONE (05:00)
[2024-01-29 06:43] LABS: BASO % 0.4 % (0-2.0); EOS % 3.9 % (0-4.5); HEMATOCRIT 35.1 % (35.4-49); HEMOGLOBIN 11.2 GM/dL (11.7-16.9); MCH 28.2 pg (25.7-33.7); MEAN PLT VOLUME 9.3 fl (7.5-11.1); NEUT % 55.7 % (42.8-82.8); PLATELET COUNT 200 10^3/uL (134-434); RBC 3.99 M/mm3 (4.00-5.60); RDW 15.5 % (11.9-15.9); WHITE BLOOD COUNT 5.4 K/mm3 (4.0-10.0)
[2024-01-29 06:58] LABS: POTASSIUM 4.2 mmol/L (3.5-5.1)
[2024-01-29 07:01] LABS: CALCIUM 9.2 mg/dL (8.5-10.1)
[2024-01-29 07:02] LABS: ALBUMIN 2.8 g/dl (3.4-5.0); BLOOD UREA NITROGEN 14.7 mg/dL (7-18); MAGNESIUM 2.1 mg/dL (1.8-2.4)
[2024-01-29 07:05] LABS: CREATININE 0.8 mg/dL (0.55-1.3); PHOSPHOROUS 3.8 mg/dL (2.5-4.9)
[2024-01-29 07:06] LABS: BILIRUBIN,TOTAL 0.4 mg/dL (0.2-1); TOT PROT 5.8 g/dl (6.4-8.2)
[2024-01-29 07:44] LABS: HIV INTERPRETATION NEGATIVE (NEGATIVE)
[2024-01-29] MEDS ORDERED: PANTOPRAZOLE 40 MG TABLET PO ONE (09:29)
[2024-01-29] MEDS ORDERED: POLYETHYLENE GLYCOL (HEALTHYLAX) 3350 17 GM PACKET ONE (09:29)
[2024-01-29] MEDS ORDERED: LISINOPRIL 20 MG TABLET ONE (09:30)
[2024-01-29] MEDS ORDERED: amLODIPine BESYLATE 10 MG TABLET (FP) ONE (09:30)
[2024-01-29] MEDS ORDERED: methaDONE HCL 10 MG TABLET ONE (09:30)
[2024-01-29] MEDS: POLYETHYLENE GLYCOL (HEALTHYLAX) 3350 17 GM PACKET PO SCH ×2 (09:42→14:08)
[2024-01-29] MEDS: DEXTROSE 5%-LACTATED RINGERS 1,000 ML IV SCH (09:42)
[2024-01-29] MEDS: PANTOPRAZOLE 40 MG TABLET PO SCH (09:42)
[2024-01-29] MEDS: methaDONE HCL 10 MG TABLET PO SCH (09:42)
[2024-01-29] MEDS: amLODIPine BESYLATE 10 MG TABLET (FP) PO SCH (09:42)
[2024-01-29] MEDS: LISINOPRIL 20 MG TABLET PO SCH (09:42)
[2024-01-29] MEDS ORDERED: methaDONE HCL 10 MG TABLET PO SCH (10:00)
[2024-01-29] MEDS ORDERED: PATIENT'S OWN MEDICATION (NON-FORMULARY) (Linaclotide 145 MCG Capsule) PO SCH (10:00)
[2024-01-29] MEDS ORDERED: POLYETHYLENE GLYCOL (HEALTHYLAX) 3350 17 GM PACKET PO SCH (10:00)
[2024-01-29] MEDS ORDERED: BISACODYL 10 MG SUPP.RECT PR PRN (11:11)
[2024-01-29] MEDS: Methylnaltrexone Bromide 12 MG/0.6 ML KIT SQ ONE (12:29)
[2024-01-29] MEDS: SODIUM PHOSPHATE/NA BIPHOS 133 ML ENEMA RC ONE (12:29)
[2024-01-29] MEDS ORDERED: ONDANSETRON 4 MG/2 ML VIAL ONE (12:56)
[2024-01-29] MEDS: SODIUM CHLORIDE 500 ML IV STA (13:00)
[2024-01-29] MEDS: ONDANSETRON 4 MG/2 ML VIAL IVPUSH ONE (13:01)
[2024-01-29] MEDS: TRIMETHOBENZAMIDE HCL 200MG/2ML INJ IM ONE (14:07)
[2024-01-29] MEDS ORDERED: TRIMETHOBENZAMIDE HCL 200MG/2ML INJ IM PRN (14:12)
[2024-01-29] MEDS ORDERED: KETOROLAC TROMETHAMINE 30 MG/1 ML VIAL ONE (14:20)
[2024-01-29] MEDS: KETOROLAC TROMETHAMINE 30 MG/1 ML VIAL IVPUSH ONE (14:25)
[2024-01-29] MEDS ORDERED: KETOROLAC TROMETHAMINE 15 MG/ML VIAL IVPUSH PRN (14:48)
[2024-01-29] MEDS ORDERED: ACETAMINOPHEN 1000 MG/100 ML BAG IVPB PRN ×2 (14:49→14:50)
[2024-01-29] MEDS ORDERED: HYDROmorphone HCl 2 MG/ML VIAL ONE (15:04)
[2024-01-29] MEDS: HYDROmorphone HCl 2 MG/ML VIAL IVPUSH ONE (15:08)
[2024-01-29] MEDS: ONDANSETRON 4 MG/2 ML VIAL IVPUSH PRN (16:04)
[2024-01-29] MEDS ORDERED: traZODone HCL 100 MG TABLET (FP) PO SCH (22:00)
[2024-01-29] MEDS ORDERED: traZODone HCL 50 MG TABLET (FP) ONE (22:04)
[2024-01-29] MEDS ORDERED: traZODone HCL 50 MG TABLET (FP) PO SCH (22:37)
[2024-01-29] MEDS: traZODone HCL 50 MG TABLET (FP) PO SCH (22:48)
[2024-01-29] MEDS ORDERED: Methylnaltrexone Bromide 12 MG/0.6 ML KIT SQ ONE (23:18)
[2024-01-30 08:19] LABS: POTASSIUM 3.9 mmol/L (3.5-5.1)
[2024-01-30 08:20] LABS: BASO % 0.2 % (0-2.0); EOS % 0.9 % (0-4.5); HEMATOCRIT 34.9 % (35.4-49); HEMOGLOBIN 11.5 GM/dL (11.7-16.9); LYMPH % 21.6 % (8-40); MCH 28.5 pg (25.7-33.7); MCHC 32.9 g/dl (32.0-35.9); MEAN CELL VOLUME 86.6 fl (80-96); MEAN PLT VOLUME 9.1 fl (7.5-11.1); MONO % 7.4 % (3.8-10.2); NEUT % 69.9 % (42.8-82.8); PLATELET COUNT 202 10^3/uL (134-434); RBC 4.03 M/mm3 (4.00-5.60); RDW 15.5 % (11.9-15.9); WHITE BLOOD COUNT 6.9 K/mm3 (4.0-10.0)
[2024-01-30 08:30] LABS: ALBUMIN 2.9 g/dl (3.4-5.0); BLOOD UREA NITROGEN 12.6 mg/dL (7-18)
[2024-01-30 08:34] LABS: BILIRUBIN,TOTAL 0.6 mg/dL (0.2-1)
[2024-01-30 08:35] LABS: CREATININE 0.9 mg/dL (0.55-1.3); TOT PROT 6.1 g/dl (6.4-8.2)
[2024-01-30 14:10] VITALS: BP 119/74; PULSE 78; RESP 18; TEMP 99
== END 2024-01-30 14:56 | disposition home or self-care (01) ==
LOC: JER 15:47 → JERBED 19:47 → UNDOADMOB 19:47 → INTOOBSV 21:06 → OBSVTOIN 21:06 → JERBED 01-29 09:19 → J4W 01-29 15:45
PROVIDERS: ADMIT Internal Medicine; ATTEND Internal Medicine
PROC: 3E033NZ Introduction of Analgesics, Hypnotics, Sedatives into Peripheral Vein, Percutaneous Approach (ICD-10-PCS; principal; 2024-01-29)
PROC: 3E0337Z Introduction of Electrolytic and Water Balance Substance into Peripheral Vein, Percutaneous Approach (ICD-10-PCS; 2024-01-29)
PROC: 3E023GC Introduction of Other Therapeutic Substance into Muscle, Percutaneous Approach (ICD-10-PCS; 2024-01-29)
DX: K59.03 Drug induced constipation (principal); T40.2X5A Adverse effect of other opioids, initial encounter; X58.XXXA Exposure to other specified factors, initial encounter; Y92.9 Unspecified place or not applicable; K21.9 Gastro-esophageal reflux disease without esophagitis; I10 Essential (primary) hypertension; K27.9 Peptic ulcer, site unspecified, unspecified as acute or chronic, without hemorrhage or perforation; Z79.891 Long term (current) use of opiate analgesic; M54.9 Dorsalgia, unspecified; K31.9 Disease of stomach and duodenum, unspecified; G89.29 Other chronic pain; H93.92 Unspecified disorder of left ear; R10.13 Epigastric pain; R53.1 Weakness; R63.30 Feeding difficulties, unspecified; R11.10 Vomiting, unspecified; N20.0 Calculus of kidney
CPT/HCPCS: 0241U-QW; 36415; 74018-TC-FY; 74177-TC; 80053; 81003; 82962; 83036; 83605; 83690; 83735; 84100; 84484; 85025; 85610; 85730; 86850; 86900; 86901; 87086; 87389; 93005; 93010; 96361; 96365; 96375; 96376; 97116-GP; 97161-GP; 99285-25; G0378; J0131; Q9967

== ENCOUNTER 2024-03-01 22:24 | Emergency (ER) | payer OTHER ==
[2024-03-01 22:27] VITALS: BP 154/88; PULSE 78; RESP 16; TEMP 97.9; BMI 22.3
[2024-03-01] MEDS ORDERED: FAMOTIDINE 20 MG/50 ML IVPB 20 MG/50 ML MG IVPB ONE (22:55)
[2024-03-01] MEDS ORDERED: ACETAMINOPHEN INJECTION 100 ML IVPB ONE (22:55)
[2024-03-01] MEDS ORDERED: MAG HYDROX/AL HYDROX/SIMETH 30 ML UNIT-DOSE CUP ONE (22:55)
[2024-03-01] MEDS: MAG HYDROX/AL HYDROX/SIMETH 30 ML UNIT-DOSE CUP PO ONE (23:22)
[2024-03-01 23:23] LABS: BASO % 0.3 % (0-2.0); EOS % 0.9 % (0-4.5); HEMATOCRIT 35.4 % (35.4-49); HEMOGLOBIN 11.8 GM/dL (11.7-16.9); LYMPH % 7.2 % (8-40); MCH 28.7 pg (25.7-33.7); MCHC 33.3 g/dl (32.0-35.9); MEAN CELL VOLUME 86.1 fl (80-96); MEAN PLT VOLUME 8.9 fl (7.5-11.1); NEUT % 86.6 % (42.8-82.8); PLATELET COUNT 189 10^3/uL (134-434); RBC 4.11 M/mm3 (4.00-5.60); RDW 14.4 % (11.9-15.9)
[2024-03-01 23:30] LABS: INR 1.02 (0.83-1.09); PROTHROMBIN TIME (PATIENT) 11.5 SEC (9.7-13.0)
[2024-03-01 23:32] LABS: ACTIVATED PTT 23.3 SECONDS (25.2-36.5)
[2024-03-01 23:36] LABS: POTASSIUM 4.2 mmol/L (3.5-5.1)
[2024-03-01 23:40] LABS: ALBUMIN 3.5 g/dl (3.4-5.0); BLOOD UREA NITROGEN 27.5 mg/dL (7-18)
[2024-03-01 23:43] LABS: CREATININE 1.1 mg/dL (0.55-1.3)
[2024-03-01 23:45] LABS: BILIRUBIN,TOTAL 0.3 mg/dL (0.2-1); TOT PROT 6.8 g/dl (6.4-8.2)
[2024-03-02 00:35] LABS: LACTIC ACID 2.2 mmol/L (0.4-2.0)
[2024-03-02] MEDS: ACETAMINOPHEN 1000 MG/100 ML BAG IVPB ONE (01:39)
[2024-03-02] MEDS: SODIUM CHLORIDE 0.9% 500 ML INFUS.BAG IV ONE (01:39)
[2024-03-02] MEDS: FAMOTIDINE 20 MG/50 ML IVPB 20 MG/50 ML MG IVPB ONE (02:02)
[2024-03-02 02:26] LABS: URINE APPEARANCE CLEAR; URINE COLOR YELLOW
[2024-03-02 02:27] LABS: PH,URINE 5.5 (5.0-8.0); URINE BILIRUBIN NEGATIVE (NEGATIVE); URINE GLUCOSE (UA) NEGATIVE (NEGATIVE); URINE KETONE NEGATIVE (NEGATIVE)
[2024-03-02 02:28] LABS: URINE LEUK ESTERASE NEGATIVE (NEGATIVE); URINE NITRITE NEGATIVE (NEGATIVE); URINE PROTEIN NEGATIVE (NEGATIVE)
== END 2024-03-02 05:32 | disposition home or self-care (01) ==
LOC: JER 22:24
PROC: 3E033GC Introduction of Other Therapeutic Substance into Peripheral Vein, Percutaneous Approach (ICD-10-PCS; principal; 2024-03-02)
PROC: 3E033NZ Introduction of Analgesics, Hypnotics, Sedatives into Peripheral Vein, Percutaneous Approach (ICD-10-PCS; 2024-03-02)
DX: R10.13 Epigastric pain (principal)
CPT/HCPCS: 36415; 76705-TC; 80053; 81003; 83605; 83690; 84484; 85025; 85610; 85730; 86850; 86900; 86901; 87086; 93005; 93010; 96365; 96375; 99285-25; J0131

== ENCOUNTER 2024-07-17 14:40 | Emergency (ER) | payer OTHER ==
[2024-07-17 14:48] VITALS: BP 145/84; PULSE 83; RESP 18; TEMP 98.8; BMI 22.3
[2024-07-17] MEDS ORDERED: KETOROLAC TROMETHAMINE 30 MG/1 ML VIAL ONE ×2 (15:43→15:45)
[2024-07-17] MEDS: KETOROLAC TROMETHAMINE 30 MG/1 ML VIAL IM ONE (16:15)
== END 2024-07-17 17:15 | disposition home or self-care (01) ==
LOC: JERFT 14:40
PROC: 3E0233Z Introduction of Anti-inflammatory into Muscle, Percutaneous Approach (ICD-10-PCS; principal; 2024-07-17)
DX: M79.641 Pain in right hand (principal); M25.531 Pain in right wrist; M21.331 Wrist drop, right wrist; R53.1 Weakness
CPT/HCPCS: 73110-TC-RT-FY; 73130-TC-RT-FY; 96372; 99284-25